=== PATIENT | male | born 1960 | race Caucasian/White ===

== ENCOUNTER → 2019-05-14 | Day surgery (SDC) | payer OTHER ==
[~2019-05-14] VITALS: Ht 175.3 cm; Wt 88.5 kg
[~2019-05-14] MED LIST: ACYCLOVIR 200200 MG PO; ADULT ASPIRIN R81 MG PO; COZAAR 25 MG TA25 M1 PO; HYDROCODON-ACE1 EAC7 PO; ROSUVASTATIN CA20 MG PO
--- NOTE | ~2019-05-14 | OP ---
[address] [address] OPERATIVE REPORT Name: GARRY LAZCANO Room: [facility]#: [id number] Admission: 05/14/19 Attend Phys: Jennifer Murray MD Discharge: Date of : 60 Report #: [id number] THIS REPORT FOR: //name// CC: Angie Murray DATE OF SERVICE: 05/14/2019 PREOPERATIVE DIAGNOSIS: Recurrent right inguinal hernia. POSTOPERATIVE DIAGNOSIS: Recurrent right direct inguinal hernia. OPERATIVE PROCEDURE: Right inguinal herniorrhaphy, open with placement of Bard soft mesh and a Kaylen repair. ANESTHESIA: General endotracheal with 0.5% Marcaine infiltrated into the incision site. OPERATIVE PROCEDURE: The patient was placed under general endotracheal anesthesia and the patient's right inguinal crease was shaved, prepped and draped in a sterile fashion. A timeout taken. IV antibiotics administered. I began by creating a field block by injecting just medial to the anterior superior iliac spine, medially towards the lateral border of the rectus muscle down to the pubic tubercle and parallel to the inguinal ligament with 10 mL of 0.5% Marcaine. A transverse incision of 6 cm was created with a #15 scalpel blade and cautery then was used to dissect through the subcutaneous fat, Otto's fascia down to the external oblique fibers, a Weitlaner was placed there. A small incision was placed in the direction of the external oblique fibers and it edges lifted up with 2 hemostats and Metzenbaum scissors, opened the oblique fibers from the external ring to the internal ring. The underlying tissues were teased off of the undersurface of the external oblique fibers and the Weitlaner was placed there. The cord structure was identified and carefully massaged and dissected off of the pubic tubercle and encircled with a quarter inch [place] drain. The fascial defect was in the inguinal floor with a small preperitoneal fat herniating through that site. It was manually reduced and sutured and closed with 2 interrupted 2-0 Prolene sutures. I then brought in a Bard soft mesh cut and laid it into the inguinal floor in an elliptical fashion with keyhole and laid it with the tails crossed behind the cord structure and interrupted 0 Prolene sutures were placed at the pubic tubercle along the iliopubic tract and transversalis fascia and then infiltrated all those sites with 0.5% Marcaine. These [place] drain was released along the repair to sit on the repaired site and then I reapproximated the external oblique fibers with a running 2-0 plain gut sutures. I reapproximated Otto's fascia with interrupted 2-0 plain gut sutures and the epidermis was closed with a running 4-0 PDS sutures and the wound was then [place] [address] OPERATIVE REPORT Name: GARRY LAZCANO Room: [facility]#: [id number] Admission: 05/14/19 Attend Phys: Jennifer Murray MD Discharge: Date of : 60 Report #: [id number] ESTIMATED BLOOD LOSS: 1 mL. No specimens. Sponge and instrument counts correct. The patient was taken off of general endotracheal anesthesia and returned to recovery in satisfactory condition. By: 1255 [id number] Murray MD /nt
--- NOTE | ~2019-05-14 | H ---
[place] [address] HISTORY AND PHYSICAL Name: NENOGARRY Sharyn Room: [facility]#: [id number] Admission: Attend Phys: Jennifer Murray MD Discharge: Date of : 60 Report #: [id number] THIS REPORT FOR: //name// CC: Angie Murray To be treated on 05/14/2019. ADMITTING DIAGNOSIS: Recurrent right inguinal hernia. HISTORY OF PRESENT ILLNESS: The patient is a 59-year-old gentleman, who presents with a history of hypertension, who had an inguinal hernia repair laparoscopically in 02/2019 and then on followup physical exam, was noted the presence of recurrence and the assumption that the laparoscopic-placed mesh had shifted and allowed for recurrence to return and so was referred for surgical management. HOME MEDICATIONS: Include rosuvastatin, valacyclovir, Xiaflex, baby aspirin, and losartan. He had knee surgery performed in 2008 as well. SOCIAL HISTORY: He is a current every-day smoker. He does not use illegal drugs and he has a mild history of alcohol use. PHYSICAL EXAMINATION: GENERAL: He is a well-developed, well-nourished male. HEAD, EARS, EYES, NOSE AND THROAT: Unremarkable. NECK: Supple. LUNGS: Clear. CARDIAC: Regular rate and rhythm without murmur. ABDOMEN: Soft. In his right inguinal crease, there is a palpable reducible inguinal hernia, none on the left. He has healed scars from laparoscopic incisions in the lower abdomen. EXTREMITIES: Noted no varicosities or pitting edema. IMPRESSION: Recurrent right inguinal hernia. I have outlined open inguinal hernia repair with placement of an onlay mesh with its associated risks and benefits. I answered his questions. He understands and wishes to proceed. By: 1039 105Reema Murray MD /nt
--- NOTE | 2019-05-14 11:04 | EKG ---
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
== END | disposition home or self-care (01) ==
LOC: M.SUR 08:55
DX: K40.91 Unilateral inguinal hernia, without obstruction or gangrene, recurrent (principal); I10 Essential (primary) hypertension; F17.210 Nicotine dependence, cigarettes, uncomplicated; Z98.890 Other specified postprocedural states; Z79.899 Other long term (current) drug therapy; Z88.8 Allergy status to other drugs, medicaments and biological substances; Z79.82 Long term (current) use of aspirin